=== PATIENT | female | born 1990 ===

== ENCOUNTER → 2022-06-17 | Outpatient (CLI) | payer OTHER ==
[2022-06-17 19:21] LABS: BASOPHILS PERCENT AUTO 1 % (0-2); EOSINOPHILS ABSOLUTE AUTO 0.09 K/mm3 (0.00-0.68); EOSINOPHILS PERCENT AUTO 1 % (0-6); Hematocrit 35.9 % (33.0-51.0); Hemoglobin 11.9 g/dL (11.5-16.0); IMMATURE GRAN ABSOLUTE AUTO 0.31 K/mm3 (0.00-0.10); IMMATURE GRAN PERCENT AUTO 3 % (0-1); LYMPHOCYTES ABSOLUTE AUTO 2.12 K/mm3 (0.84-5.20); LYMPHOCYTES PERCENT AUTO 18 % (21-46); MONOCYTES ABSOLUTE AUTO 0.56 K/mm3 (0.16-1.47); MONOCYTES PERCENT AUTO 5 % (4-13); Mean Corpuscular HGB 30.9 pg (26.0-34.0); Mean Corpuscular HGB Conc 33.1 g/dL (31.5-36.5); Mean Corpuscular Volume 93 fL (80-100); Mean Platelet Volume 9.5 fL (9.1-12.4); NEUTROPHILS ABSOLUTE AUTO 8.82 K/mm3 (1.96-9.15); NEUTROPHILS PERCENT AUTO 73 % (41-73); Platelet Count 326 K/mm3 (150-400); RDW Coefficient Variation 12.9 % (11.7-14.2); RDW Standard Deviation 43.8 fL (35.1-46.3); Red Blood Cell Count 3.85 M/mm3 (3.80-5.20)
== END | disposition home or self-care (01) ==
LOC: LAB SHORT 14:57 → LAB 14:57
PROVIDERS: Advanced Practice Midwife
DX: Z34.02 Encounter for supervision of normal first pregnancy, second trimester (principal)
CPT/HCPCS: 82950; 85025

== ENCOUNTER 2022-08-05 16:36 | Inpatient (IN) | payer OTHER ==
[2022-08-05 19:35] LABS: BASOPHILS ABSOLUTE AUTO 0.03 K/mm3 (0.00-0.23); BASOPHILS PERCENT AUTO 0 % (0-2); EOSINOPHILS PERCENT AUTO 0 % (0-6); Hemoglobin 11.1 g/dL (11.5-16.0); IMMATURE GRAN ABSOLUTE AUTO 0.25 K/mm3 (0.00-0.10); IMMATURE GRAN PERCENT AUTO 2 % (0-1); LYMPHOCYTES PERCENT AUTO 18 % (21-46); MONOCYTES ABSOLUTE AUTO 1.18 K/mm3 (0.16-1.47); MONOCYTES PERCENT AUTO 9 % (4-13); Mean Corpuscular HGB 30.6 pg (26.0-34.0); Mean Corpuscular HGB Conc 33.6 g/dL (31.5-36.5); Mean Corpuscular Volume 91 fL (80-100); Mean Platelet Volume 10.3 fL (9.1-12.4); NEUTROPHILS ABSOLUTE AUTO 8.86 K/mm3 (1.96-9.15); NEUTROPHILS PERCENT AUTO 71 % (41-73); Platelet Count 299 K/mm3 (150-400); RDW Coefficient Variation 12.3 % (11.7-14.2); RDW Standard Deviation 40.9 fL (35.1-46.3); Red Blood Cell Count 3.63 M/mm3 (3.80-5.20); White Blood Cell Count 12.52 K/mm3 (4.00-11.30)
--- NOTE | 2022-08-05 20:15 | NUR ---
PT RETURNS TO [facility] TO SIGN OUT AMA. SHE DECLINES ASSESSMENT BY THIS RN. STATES SHE FEELS FINE AND WILL RETURN TO [facility] IS SHE HAS CONCERNS. PLANS ON GETTING A SECOND OPINION TOMORROW.
== END 2022-08-05 20:30 | disposition left against medical advice (07) | DRG 832 ==
LOC: OBS 16:36 → BC 16:37 → OBS 19:30 → BC 20:30
PROVIDERS: ADMIT Advanced Practice Midwife
DX: O14.93 Unspecified pre-eclampsia, third trimester (principal); O41.03X0 Oligohydramnios, third trimester, not applicable or unspecified; Z3A.36 36 weeks gestation of pregnancy
CPT/HCPCS: 59025; 76819; 81003; 85025; 86850; 86900; 86901

== ENCOUNTER 2022-08-07 19:19 | Inpatient (IN) | payer OTHER ==
[~2022-08-07] VITALS: Ht 162.6 cm; Wt 77.2 kg
[2022-08-07] MEDS ORDERED: FAMO20 PO (20:43)
[2022-08-07 20:50] LABS: BASOPHILS ABSOLUTE AUTO 0.06 K/mm3 (0.00-0.23); BASOPHILS PERCENT AUTO 0 % (0-2); EOSINOPHILS ABSOLUTE AUTO 0.07 K/mm3 (0.00-0.68); EOSINOPHILS PERCENT AUTO 0 % (0-6); Hemoglobin 11.1 g/dL (11.5-16.0); IMMATURE GRAN ABSOLUTE AUTO 0.21 K/mm3 (0.00-0.10); IMMATURE GRAN PERCENT AUTO 1 % (0-1); LYMPHOCYTES ABSOLUTE AUTO 2.27 K/mm3 (0.84-5.20); LYMPHOCYTES PERCENT AUTO 13 % (21-46); MONOCYTES ABSOLUTE AUTO 1.61 K/mm3 (0.16-1.47); MONOCYTES PERCENT AUTO 9 % (4-13); Mean Corpuscular HGB 30.4 pg (26.0-34.0); Mean Corpuscular HGB Conc 33.6 g/dL (31.5-36.5); Mean Corpuscular Volume 90 fL (80-100); Mean Platelet Volume 9.9 fL (9.1-12.4); NEUTROPHILS ABSOLUTE AUTO 13.87 K/mm3 (1.96-9.15); NEUTROPHILS PERCENT AUTO 77 % (41-73); NRBC ABSOLUTE 0.02 K/mm3 (0.00-0.02); NRBC Auto 0.1 /100 WBC (0.0-0.2); Platelet Count 337 K/mm3 (150-400); RDW Coefficient Variation 12.3 % (11.7-14.2); RDW Standard Deviation 40.9 fL (35.1-46.3); Red Blood Cell Count 3.65 M/mm3 (3.80-5.20); White Blood Cell Count 18.09 K/mm3 (4.00-11.30)
--- NOTE | 2022-08-08 08:44 | NUR ---
"Spiritual Care | Pt. Request Pt. is awake in bed, and welcomes my visit. Pts. mother is present. Pt. displays evidence of stress and anxiety as this is her first and delivery. Engage with theraputic listening and a calming presence. Seek to normalize the Pt. experience and bring pastoral care to the Pt. Pt. displayed evidence of being encouraged. Prayed for Pt. and the delivery. Pt. verbalized gratitude for the spiritual care visit, and welcomed this supervisor feed house to return after the baby is delivered."
[2022-08-09 05:58] LABS: Source, Urine Foley catheter
[2022-08-09 06:03] LABS: Appearance, Urine Clear (Clear); Bilirubin, Urine Neg (Neg); Blood, Urine 5+ (Neg); Color, Urine Yellow (P-Yellow); Glucose Qualitative, Urine Neg (Neg); Ketones, Urine 4+ (Neg); Leukocyte Esterase, Urine Neg (Neg); Nitrite, Urine Neg (Neg); Protein, Urine 2+ (Neg); Specific Gravity, Urine 1.015 (1.003-1.022); Urobilinogen, Urine NORM (Normal)
[2022-08-09 06:23] LABS: Bacteria Rare /hpf; Red Blood Cells, Urine 25-50 /hpf (0-2); Squamous Epithelial Cells Rare /hpf (Few); White Blood Cells, Urine 0-2 /hpf (0-5)
--- NOTE | 2022-08-09 09:30 | NUR ---
08/09/22 0930 Laina Kathleen PRIMARY C/S FOR [facility], DELIVERY AT 0858, 9/9 APGARS
[2022-08-10 05:54] LABS: BASOPHILS ABSOLUTE AUTO 0.07 K/mm3 (0.00-0.23); BASOPHILS PERCENT AUTO 0 % (0-2); EOSINOPHILS ABSOLUTE AUTO 0.24 K/mm3 (0.00-0.68); EOSINOPHILS PERCENT AUTO 1 % (0-6); Hematocrit 29.3 % (33.0-51.0); IMMATURE GRAN ABSOLUTE AUTO 0.31 K/mm3 (0.00-0.10); IMMATURE GRAN PERCENT AUTO 2 % (0-1); LYMPHOCYTES ABSOLUTE AUTO 2.55 K/mm3 (0.84-5.20); LYMPHOCYTES PERCENT AUTO 13 % (21-46); MONOCYTES ABSOLUTE AUTO 1.58 K/mm3 (0.16-1.47); MONOCYTES PERCENT AUTO 8 % (4-13); Mean Corpuscular HGB 30.4 pg (26.0-34.0); Mean Corpuscular HGB Conc 34.1 g/dL (31.5-36.5); Mean Corpuscular Volume 89 fL (80-100); Mean Platelet Volume 10.1 fL (9.1-12.4); NEUTROPHILS ABSOLUTE AUTO 15.42 K/mm3 (1.96-9.15); NEUTROPHILS PERCENT AUTO 77 % (41-73); Platelet Count 349 K/mm3 (150-400); RDW Coefficient Variation 12.3 % (11.7-14.2); Red Blood Cell Count 3.29 M/mm3 (3.80-5.20); White Blood Cell Count 20.17 K/mm3 (4.00-11.30)
--- NOTE | 2022-08-11 10:19 | NUR ---
0900-PT REQUESTED TO BE ALLOWED TO SLEEP. BABY SAFE IN CRIB ON HER BACK IN ROOM WITH MOTHER. ADVISED MOTHER TO CALL WHEN SHE WAS UP FOR FURTHER ASSESSMENTS. JUICE WAS TAKEN TO PATIENT PRIOR TO HER FALLING ASLEEP
[2022-08-11] MEDS ORDERED: ROXICODONE5 MG PO (14:31)
[2022-08-11] MEDS ORDERED: PRENATAL TABLE1 EAC2 PO (14:31)
[2022-08-11] MEDS ORDERED: IBUP800 PO (14:31)
--- NOTE | 2022-08-11 16:09 | NUR ---
PT DISCHARGED HOME AT 1525. PT TOOK ALL BELONGINGS HOME WITH HER. PT ESCORTED TO PRIVATE CAR BY RN.
--- NOTE | 2022-08-11 16:10 | NUR ---
DISCHARGE TEACHING DONE AT 1445. ALL QUESTIONS ANSWERED. PT RECEIVED WRITTEN COPY OF INSTRUCTIONS AND VERBALIZED UNDERSTANDING
== END 2022-08-11 15:25 | disposition home or self-care (01) | DRG 788 ==
LOC: OBS 19:19 → BC 19:21 → OBS 20:18 → BC 20:19
PROVIDERS: Obstetrics & Gynecology; ADMIT Advanced Practice Midwife
PROC: 3E0P7VZ Introduction of Hormone into Female Reproductive, Via Natural or Artificial Opening (ICD-10-PCS; 2022-08-09)
PROC: 0U7C7ZZ Dilation of Cervix, Via Natural or Artificial Opening (ICD-10-PCS; 2022-08-09)
PROC: 3E033VJ Introduction of Other Hormone into Peripheral Vein, Percutaneous Approach (ICD-10-PCS; 2022-08-09)
PROC: 10D00Z1 Extraction of Products of Conception, Low, Open Approach (ICD-10-PCS; principal; 2022-08-09 08:30)
DX: O14.14 Severe pre-eclampsia complicating childbirth (principal); O99.334 Smoking (tobacco) complicating childbirth; Z67.10 Type A blood, Rh positive; Z3A.36 36 weeks gestation of pregnancy; Z37.0 Single live birth; O32.8XX0 Maternal care for other malpresentation of fetus, not applicable or unspecified; O62.1 Secondary uterine inertia; Z79.899 Other long term (current) drug therapy
CPT/HCPCS: 36415; 51702; 81001; 81003; 85025; 86850; 86900; 86901; A9270; J0456; J0690; J1885; J2270; J2590; J2765; J3010; J7050; J7120